=== PATIENT | female | born 1975 | race Native Hawaiian/Other Pacific Islander ===

== ENCOUNTER 2016-08-29 15:36 | Emergency (ER) | payer MEDICAID, OTHER ==
[2016-08-29] MEDS ORDERED: IBUPROFEN 800 MG TABLET ONE (16:14)
[2016-08-29 16:46] LABS: ABSOLUTE NEUTROPHIL COUNT 4.9 K/mm3 (1.8-7.7); BASO % 0.5 % (0.2-1.0); EOS # 0.3 (0.0-0.5); EOS % 3.7 % (0.9-2.9); HEMATOCRIT 36.7 % (37.0-47.0); HEMOGLOBIN 11.8 gm/l (12.0-16.0); IMM NEUT% 0.1 % (0-1); LYMPH # 2.4 (1.0-4.8); LYMPH % 29.5 % (15-45); MEAN CELL VOLUME 82.8 fl (81.0-99.0); MEAN CORPUSCULAR HEMOGLOBIN 26.6 pg (27.0-31.0); MEAN CORPUSCULAR HGB CONC 32.2 g/dl (33.0-37.0); MEAN PLATELET VOLUME 9.3 fl (7.4-10.4); MONO # 0.5 (0.0-0.8); MONO % 5.9 % (4-12); NEUT % 60.3 % (43-75); PLATELET COUNT 299 K/mm3 (130-400); RED CELL DISTRIBUTION WIDTH 12.5 % (11.5-14.5)
[2016-08-29 16:47] LABS: SPECIFIC GRAVITY 1.015 (1.001-1.030); URINE BILIRUBIN NEGATIVE (NEGATIVE); URINE BLOOD NEGATIVE (NEGATIVE); URINE GLUCOSE (UA) NEGATIVE (NEGATIVE); URINE LEUKOCYTE ESTERASE NEGATIVE (NEGATIVE); URINE NITRITE NEGATIVE (NEGATIVE); URINE PROTEIN NEGATIVE (NEGATIVE); URINE UROBILINOGEN NORMAL (0-1 mg/dl)
[2016-08-29 16:48] LABS: URINE APPEARANCE CLEAR; URINE COLOR YELLOW
[2016-08-29 17:09] LABS: ALB/GLOB RATIO 0.9 (>1.0); ALBUMIN 3.5 gm/dL (3.5-5.7); CALCIUM 9.3 mg/dL (8.6-10.3)
--- NOTE | 2016-08-29 17:45 | CT ---
HEAD CT WITHOUT CONTRAST HISTORY: Left upper extremity radiculopathy No intravenous contrast administered. Contiguous axial images acquired from skull base to vertex. COMPARISON:None. BRAIN VOLUME:Grossly unremarkable for patient age. VENTRICULAR SIZE:No gross ventriculomegaly. FOCAL MASS EFFECT:None. ACUTE INTRACRANIAL HEMORRHAGE:None. CALVARIUM:Grossly intact. VISIBLE PARANASAL SINUSES AND MASTOID AIR CELLS: Right-sided tympanomastoid effusion IMPRESSION: 1. No gross mass effect, ventriculomegaly, or acute intracranial hemorrhage. 2. Right-sided tympanomastoid effusion, otomastoiditis is possible. Results were electronically transmitted to the electronic medical record at 08/29/2016 at 1741 hours.
--- NOTE | 2016-08-29 17:49 | CT ---
CERVICAL SPINE CT WITHOUT CONTRAST HISTORY: Left facial pain, left-sided radiculopathy. No intravenous contrast administered contiguous axial images acquired from the posterior fossa to the T2-3 level. FINDINGS ALIGNMENT: Grossly unremarkable. COMPRESSION DEFORMITY: None. DISC SPACES: Grossly preserved. FRACTURE: No displaced fracture. DEGENERATIVE CHANGE: Minor discussed by ridge formation at the C3-4 and C5-6 levels. Limited evaluation of spinal canal contents at the C4 level and below due to soft tissue artifact. Small central disc protrusion at C3-4. PARASPINAL SOFT TISSUES: Airway patent with partial effacement of oropharyngeal airway. No gross mass effect. LUNG APICES: Grossly unremarkable within field of view. IMPRESSION: 1. No displaced cervical spine fracture. Grossly limited evaluation of spinal canal content due to soft tissue artifact. Small disc protrusion at C3-4. 2. Moderate effacement of oropharyngeal airway, correlate for possible obstructive sleep apnea. Results were electronically transmitted to the electronic medical record at 08/29/2016 at 1745 hours.
== END 2016-08-29 18:44 | disposition home or self-care (01) ==
LOC: ED 15:36
DX: M54.12 Radiculopathy, cervical region (principal); M62.838 Other muscle spasm; R20.0 Anesthesia of skin; I10 Essential (primary) hypertension; E11.9 Type 2 diabetes mellitus without complications; Z79.84 Long term (current) use of oral hypoglycemic drugs
CPT/HCPCS: 84703; 85025; 80053; 81003; 72125; 70450; 99284; 99283; A9270